=== PATIENT | female | born 1940 | race Caucasian/White ===

== ENCOUNTER → 2018-01-12 | Outpatient (CLI) | payer MEDICARE, OTHER ==
[~2018-01-12] MED LIST: ALL300 PO; ALPR-698 PO; BUS5 PO; CITA-155 PO; DICLOFENAC; FLU20 PO; FLUT16SP20 NS; FLUT1DIS28 IH; HYDR1TAB PO; IPRN ENA; LEVO50TA80 PO; LISI-347 PO; LOSA25TA52 PO; LOVA40TA89 PO; MOM110R IH; MOMR NS; PRILOSEC PO; TRAM-420 PO
== END ==
LOC: RESP 19:45
PROVIDERS: ATTEND Family Medicine
DX: G47.33 Obstructive sleep apnea (adult) (pediatric) (principal); G47.61 Periodic limb movement disorder; G47.36 Sleep related hypoventilation in conditions classified elsewhere